=== PATIENT | male | born 1955 | race Caucasian/White ===

== ENCOUNTER → 2016-08-19 | Outpatient (CLI) | payer MEDICARE, MEDICAID | END | disposition short-term general hospital (02) | LOC: CLVASC 13:58 | DX: L97.819 Non-pressure chronic ulcer of other part of right lower leg with unspecified severity (principal); I87.2 Venous insufficiency (chronic) (peripheral) ==

== ENCOUNTER → 2016-09-02 | Outpatient (CLI) | payer MEDICARE, MEDICAID | END | disposition short-term general hospital (02) | LOC: CLVASC 12:10 | DX: L97.311 Non-pressure chronic ulcer of right ankle limited to breakdown of skin (principal); I83.019 Varicose veins of right lower extremity with ulcer of unspecified site ==